=== PATIENT | male | born 1995 | race Caucasian/White ===

== ENCOUNTER 2017-01-29 15:56 | Emergency (ER) | payer OTHER ==
[~2017-01-29] VITALS: Ht 182.9 cm; Wt 134.2 kg
[~2017-01-29 15:56] MED LIST: ALBUAER2 INH; PHEN1MIS10 PO
[2017-01-29 16:00] VITALS: TEMP 36.6; Ht 182.9 cm; Wt 134.2 kg
--- NOTE | 2017-01-29 16:24 | EMERGENCY ROOM VISIT NOTE ---
History First contact with patient: 16:06 Chief Complaint: BITE Stated Complaint: FATIQUE,DISCOMFORT, MOSQUITO BITES History of Present Illness The patient is a 21 year old male who presents to the Emergency Room with complaints of a blister to the left ankle. The patient states that he noticed an area of swelling of the posterior left ankle this morning. He reports that he believes it is likely due to a mosquito bite, as he also has mosquito bites on his right hand and right arm. The patient states that he just returned from a trip to [place] today. He does report he is concerned because he was in an area where the Zika virus is present. The patient states that the area is painful and rates it a 4/10. He has not taken any medication for pain. The patient does note that he is tired, but also took a red eye flight home. He denies any joint aches, fevers or irritation of the eyes. Review of Systems A complete 10-point Review of Systems was discussed with the patient, with pertinent positives and negatives listed in the History of Present Illness. All remaining Review of Systems questions can be considered negative unless otherwise specified. Past Medical/Surgical History Medical Problems: (1) Asthma (2) Chronic asthmatic bronchitis Family History Diabetes mellitus Social History Smoking Status: Current Some Day Smoker Alcohol Use: none Drug Use: none Marital Status: single Housing Status: lives with family Occupation Status: [employer] student Current/Historical Medications Scheduled Albuterol Hfa (Ventolin Hfa), 4 PUFFS INH QID Hydrocortisone (Topical) (Cortizone-10), 1 APPLN TOP DAILY Allergies Coded Allergies: No Known Allergies (Unverified , 01/29/17) Physical Exam Vital Signs Date Time Temp Pulse Resp B/P Pulse Ox O2 Delivery O2 Flow Rate FiO2 01/29/17 16:36 62 17 130/68 98 01/29/17 16:00 36.6 62 17 130/68 98 Room Air Physical Exam VITALS: Vitals are noted on the nurse's note and reviewed by myself. Vital signs stable. GENERAL: This is a 21-year-old male, in no acute distress, nondiaphoretic, well- developed well-nourished. SKIN: There is a serous blister to the posterior left ankle. There is no surrounding erythema. HEENT: Normocephalic. PERRLA. EOMI. no conjunctivitis. Nares patent. Mucous membranes moist. Neck is supple without nuchal rigidity. HEART: Regular rate and rhythm without murmurs gallops or rubs. LUNGS: Clear to auscultation bilaterally without wheezes, rales or rhonchi. NEURO: Patient was alert and oriented to person place and time. Medical Decision & Procedures Medical Decision The patient was evaluated as above. He has a blister to the left ankle. I feel this is likely secondary to the shoes or socks that the patient was wearing while on his vacation. He does admit that he did a lot of hiking on his vacation. I do not feel that the patient should be concerning for Zika virus and did explain to him that this is a viral illness and only typically affects women. As the patient was in an area where the Zika virus is present, I did recommend that he use protection during any sexual contacts. I did rupture the blister with a sterile 18-gauge needle. Bacitracin and Band- Aid was applied to the area. Wound care instructions were discussed with the patient. He verbalized understanding of my assessment and treatment plan was discharged home in good condition. Impression Primary Impression: Blister of ankle without infection Departure Information Dispostion Home / Self-Care Condition GOOD Referrals No Doctor, Assigned (PCP) Patient Instructions My [facility] Additional Instructions Proper wound care is essential for adequate wound healing and infection prevention. You can shower and clean the wound with soap and water. Do not scour over the wound, pat dry with a towel. Do not submerse the wound (i.e. bathe or dish wash) until the wound has fully healed. You can use an antibiotic ointment with a dressing over the wound for the next 3-4 days. After this time you may leave the wound dry and open to the air. Follow-up with your primary care provider as needed. Return for any signs of infection such as increasing redness, increasing swelling, fevers or pus like drainage. Problem Qualifiers Primary Impression: Blister of ankle without infection Encounter type: initial encounter Laterality: left Qualified Codes: S90.522A - Blister (nonthermal), left ankle, initial encounter
[2017-01-29] MEDS ORDERED: HYDR1OIN11 TOP (16:31)
[2017-01-29 16:36] VITALS: BP 130/68; PULSE 62; O2SAT 98
[2017-07-20] MEDS ORDERED: VNTHFA/IN INH (16:28)
== END 2017-01-29 16:37 | disposition home or self-care (01) ==
LOC: C.EDB 15:57 → C.EDC 16:37
DX: S90.522A Blister (nonthermal), left ankle, initial encounter (principal); X58.XXXA Exposure to other specified factors, initial encounter; S90.562A Insect bite (nonvenomous), left ankle, initial encounter; R53.83 Other fatigue; W57.XXXA Bitten or stung by nonvenomous insect and other nonvenomous arthropods, initial encounter; Y92.89 Other specified places as the place of occurrence of the external cause; F17.210 Nicotine dependence, cigarettes, uncomplicated

== ENCOUNTER 2017-07-20 18:15 | Emergency (ER) | payer OTHER ==
[~2017-07-20] VITALS: Ht 182.9 cm; Wt 119.2 kg
[~2017-07-20 18:15] MED LIST changes: -ALBUAER2 INH; +HYDR1OIN11 TOP; -PHEN1MIS10 PO; +VNTHFA/IN INH
[2017-07-20 18:17] VITALS: TEMP 36.7
[2017-07-20] MEDS ORDERED: METHYLPREDNISOLONE 125 MG VIAL IV STA (18:21)
[2017-07-20] MEDS ORDERED: ALBUT/IPRATROP 3MG/0.5MG NEB 3 ML VIAL INH ONE (18:30)
--- NOTE | 2017-07-20 18:36 | EMERGENCY ROOM VISIT NOTE ---
History Report prepared by Sunshineibjagdeep: Mat Armas Under the Supervision of: Dr. Finesse Boo M.D. First contact with patient: 18:20 Chief Complaint: RESPIRATORY PROBLEMS Stated Complaint: CHEST PAIN,WHEEZING History of Present Illness The patient is a 21 year old male who presents to the Emergency Room with complaints of constant SOB that began a couple of days ago. He rates his discomfort as a 7/10 in severity. The patient states that he has been wheezing at night and whenever he walks. He states that he believes his symptoms are due to the weather. He also complains of a productive cough. The patient admits to a history of asthma. He admits that he used his inhaler today, but denies any relief of symptoms. The patient states that the inhaler expires in September. 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 The patient denies any steroids for his symptoms and abdominal pain. Source of History: patient Onset: a couple of days ago Position: other (global) Symptom Intensity: 7/10 Quality: other (wheeze) Timing: constant Associated Symptoms: + cough, No abdominal pain Review of Systems See HPI for pertinent positives & negatives. A total of 10 systems reviewed and were otherwise negative. Past Medical & Surgical Medical Problems: (1) Asthma (2) Chronic asthmatic bronchitis Family History Diabetes mellitus Social History Smoking Status: Former Smoker Alcohol Use: none Drug Use: none Marital Status: single Housing Status: lives with family Occupation Status: [employer] student Current/Historical Medications Scheduled Azithromycin (Zithromax), 250 MG PO DAILY Prednisone (Prednisone Tab), 0 PO DAILY Scheduled PRN Albuterol Hfa (Ventolin Hfa), 2 PUFFS INH QID PRN for SOB/Wheezing Allergies Coded Allergies: No Known Allergies (Unverified , 01/29/17) Physical Exam Vital Signs Date Time Temp Pulse Resp B/P (MAP) Pulse Ox O2 Delivery O2 Flow Rate FiO2 07/20/17 20:23 85 16 110/71 98 07/20/17 19:13 66 20 96 Room Air 07/20/17 18:50 62 07/20/17 18:40 99 Room Air 07/20/17 18:40 99 Room Air 07/20/17 18:40 62 20 136/78 99 Room Air 07/20/17 18:40 99 Room Air 07/20/17 18:17 36.7 64 18 132/77 97 Room Air Physical Exam GENERAL: Patient is a healthy-appearing well-nourished 21 year old male. HEAD: Normocephalic atraumatic EYES: Ocular movements intact pupils equal and react to light OROPHARYNX mucous membranes are moist no exudates present no erythema or edema present NECK: Supple no nuchal rigidity CHEST: Good equal expansion LUNGS: Wheezing through all lung andrew bilaterally. CARDIAC: Normal S1 and S2 ABDOMEN: Soft nontender no guarding BACK: No CVA tenderness EXTREMITIES: No pain upon palpation normal muscle strength in all groups no clubbing cyanosis or edema NEURO: Patient is following commands and answering questions appropriately. Alert and oriented x3 Cranial Nerves 2-12 grossly intact Medical Decision & Procedures ER Provider Diagnostic Interpretation: X-ray results as stated below per interpretation by me and the radiologist: CHEST ONE VIEW PORTABLE CLINICAL HISTORY: Pt c/o SOB dyspnea COMPARISON STUDY: 07/10/2016 FINDINGS: Mild stable cardiomegaly. Diaphragms smooth. Lungs are clear. IMPRESSION: No acute process The above report was generated using voice recognition software. It may contain grammatical, syntax or spelling errors. Electronically signed by: Harsh Stahl M.D. 07/20/2017 7:10 PM Dictated Date/Time: 07/20/2017 7:09 PM Laboratory Results 07/20/17 18:40 Red Blood Count 5.06, Mean Corpuscular Volume 85.0, Mean Corpuscular Hemoglobin 27.9, Mean Corpuscular Hemoglobin Concent 32.8, Mean Platelet Volume 11.4, Neutrophils (%) (Auto) 51.8, Lymphocytes (%) (Auto) 32.9, Monocytes (%) (Auto) 6.3, Eosinophils (%) (Auto) 8.1, Basophils (%) (Auto) 0.7, Neutrophils # (Auto) 3.16, Lymphocytes # (Auto) 2.00, Monocytes # (Auto) 0.38, Eosinophils # (Auto) 0.49, Basophils # (Auto) 0.04 07/20/17 18:40 Test 07/20/17 18:40 White Blood Count 6.08 K/uL (4.8-10.8) Red Blood Count 5.06 M/uL (4.7-6.1) Hemoglobin 14.1 g/dL (14.0-18.0) Hematocrit 43.0 % (42-52) Mean Corpuscular Volume 85.0 fL (80-100) Mean Corpuscular Hemoglobin 27.9 pg (25-34) Mean Corpuscular Hemoglobin Concent 32.8 g/dl (32-36) Platelet Count 201 K/uL (130-400) Mean Platelet Volume 11.4 fL (7.4-10.4) Neutrophils (%) (Auto) 51.8 % Lymphocytes (%) (Auto) 32.9 % Monocytes (%) (Auto) 6.3 % Eosinophils (%) (Auto) 8.1 % Basophils (%) (Auto) 0.7 % Neutrophils # (Auto) 3.16 K/uL (1.4-6.5) Lymphocytes # (Auto) 2.00 K/uL (1.2-3.4) Monocytes # (Auto) 0.38 K/uL (0.11-0.59) Eosinophils # (Auto) 0.49 K/uL (0-0.5) Basophils # (Auto) 0.04 K/uL (0-0.2) RDW Standard Deviation 44.6 fL (36.4-46.3) RDW Coefficient of Variation 14.4 % (11.5-14.5) Immature Granulocyte % (Auto) 0.2 % Immature Granulocyte # (Auto) 0.01 K/uL (0.00-0.02) Anion Gap 3.0 mmol/L (3-11) Est Creatinine Clear Calc Drug Dose 139.2 ml/min Estimated GFR () 109.1 Estimated GFR (Non- 94.1 BUN/Creatinine Ratio 13.1 (10-20) Calcium Level 8.9 mg/dl (8.5-10.1) Total Bilirubin 0.3 mg/dl (0.2-1) Aspartate Amino Transf (AST/SGOT) 30 U/L (15-37) Alanine Aminotransferase (ALT/SGPT) 29 U/L (12-78) Alkaline Phosphatase 60 U/L (45-117) Total Protein 7.1 gm/dl (6.4-8.2) Albumin 3.5 gm/dl (3.4-5.0) Globulin 3.6 gm/dl (2.5-4.0) Albumin/Globulin Ratio 1.0 (0.9-2) Influenza Type A (RT-PCR) Neg for Influ A (NEG) Influenza Type A Antigen Neg for Influ A (NEG) Influenza Type B Antigen Neg for Influ B (NEG) Influenza Type B (RT-PCR) Neg for Influ B (NEG) Labs reviewed by ED physician. Medications Administered Medications (Trade) Dose Ordered Sig/Chao Route Start Time Stop Time Status Last Admin Dose Admin Albuterol/ Ipratropium (Duoneb) 12 ml ONE ONCE INH 07/20/17 18:30 07/20/17 18:31 DC 07/20/17 19:10 12 ML Methylprednisolone Sodium Succinate (Solu-Medrol IV) 125 mg NOW STAT IV 07/20/17 18:21 07/20/17 18:23 DC 07/20/17 18:49 125 MG Azithromycin (Zithromax Tab) 500 mg NOW STAT PO 07/20/17 19:26 07/20/17 19:27 DC 07/20/17 19:56 500 MG Sodium Chloride 1,000 ml @ 999 mls/hr Q1H1M STAT IV 07/20/17 19:26 07/20/17 20:26 DC 07/20/17 19:26 999 MLS/HR Albuterol (Ventolin Hfa Inhaler) 2 puffs NOW STAT INH 07/20/17 19:36 07/20/17 19:37 DC 07/20/17 19:56 2 PUFFS ECG Indication: SOB/dyspnea Rate (beats per minute): 64 Rhythm: normal sinus Findings: no acute ischemic change, no ectopy ED Course 1820: Past medical records reviewed. The patient was evaluated in room B10. A complete history and physical examination was performed. 1820: Ordered Solu-Medrol IV 125 mg IV. 1829: Ordered Duoneb 12 ml INH. 1925: Ordered Sodium Chloride 1000 ml @ 999 mls/hr IV, Azithromycin 500 mg PO. 1935: Ordered Albuterol 2 puffs INH. Medical Decision The differential diagnosis includes etiologies such as infections, reactive airway disease, pneumonia, pneumothorax, COPD, CHF, cardiac ischemia, pulmonary embolism, musculoskeletal, gastrointestinal, as well as others were entertained. This is a 21-year-old male with a history of asthma who presents emergency department complaining of bilateral wheezing. The patient reports his inhaler has not been helping him. He is wheezing on examination. The patient was given an hour-long breathing treatment in the emergency department and started on Solu-Medrol. He will also be started on azithromycin. He has a normal chest x-ray does not have an elevation in his white blood count cell count and does not appear to be in any apparent acute distress. Based on these findings I feel that the patient as well as to be discharged home on a prednisone taper along with azithromycin. He was also given an inhaler for his use. He was told to return if his condition worsens. Patient was in agreement with the treatment plan. Medication Reconcilliation Current Medication List: was personally reviewed by me Blood Pressure Screening Patient's blood pressure: Normal blood pressure Impression Primary Impression: Acute bronchitis Scribe Attestation The scribe's documentation has been prepared under my direction and personally reviewed by me in its entirety. I confirm that the note above accurately reflects all work, treatment, procedures, and medical decision making performed by me. Departure Information Dispostion Home / Self-Care Prescriptions Azithromycin (ZITHROMAX) 250 Mg Tab 250 MG PO DAILY, #4 TAB Prov: Finesse Boo MD 07/20/17 Prednisone (Prednisone Tab) 20 Mg Tab 0 PO DAILY, #7 TAB 2 TABS DAILY FOR 2 DAYS, THEN 1 TAB DAILY FOR 2 DAYS, THEN 1/2 TAB DAILY FOR 2 DAYS. Prov: Finesse Boo MD 07/20/17 Referrals No Doctor, Assigned (PCP) Forms HOME CARE DOCUMENTATION FORM, IMPORTANT VISIT INFORMATION, WORK / SCHOOL INSTRUCTIONS Patient Instructions ED Bronchitis Asthmatic, My [facility] Additional Instructions Use inhaler twice every 6 hours You have been examined and treated today on an emergency basis only. This is not a substitute for, or an effort to provide, complete comprehensive medical care. It is impossible to recognize and treat all injuries or illnesses in a single emergency department visit. It is therefore important that you follow up closely with [facility]. Call as soon as possible for an appointment. Thank you for your time and consideration. I look forward to speaking with you again soon. Please don't hesitate to call us if you have any questions. Problem Qualifiers Primary Impression: Acute bronchitis Bronchitis organism: unspecified organism Qualified Codes: J20.9 - Acute bronchitis, unspecified
[2017-07-20 18:40] VITALS: O2SAT 99; Ht 182.9 cm; Wt 119.2 kg
--- NOTE | 2017-07-20 19:11 | DIAGNOSTIC IMAGING REPORT ---
CHEST ONE VIEW PORTABLE CLINICAL HISTORY: Pt c/o SOB dyspnea COMPARISON STUDY: 07/10/2016 FINDINGS: Mild stable cardiomegaly. Diaphragms smooth. Lungs are clear. IMPRESSION: No acute process The above report was generated using voice recognition software. It may contain grammatical, syntax or spelling errors. Electronically signed by: Harsh Stahl M.D. 07/20/2017 7:10 PM Dictated Date/Time: 07/20/2017 7:09 PM
[2017-07-20 19:12] LABS: BASO % 0.7 %; BASO ABS # 0.04 K/uL (0-0.2); COMPLETE YES; EOS % 8.1 %; IG% 0.2 %; LYMPH % 32.9 %; MEAN CORPUSCULAR HEMOGLOBIN 27.9 pg (25-34); MEAN CORPUSCULAR HGB CONC 32.8 g/dl (32-36); MEAN PLATELET VOLUME 11.4 fL (7.4-10.4); MONO % 6.3 %; NEUT % 51.8 %; PLATELET COUNT 201 K/uL (130-400); RED BLOOD COUNT 5.06 M/uL (4.7-6.1); WHITE BLOOD COUNT 6.08 K/uL (4.8-10.8)
[2017-07-20 19:13] VITALS: PULSE 66; O2SAT 96
[2017-07-20] MEDS ORDERED: AZITHROMYCIN 250 MG TAB PO STA (19:26)
[2017-07-20] MEDS ORDERED: SODIUM CHLORIDE 0.9% 1000ML 1,000 ML IV STA (19:26)
[2017-07-20 19:34] LABS: BUN/CREATININE RATIO 13.1 (10-20); CALCIUM 8.9 mg/dl (8.5-10.1); CREATININE 1.1 mg/dl (0.60-1.40); POTASSIUM 4.2 mmol/L (3.5-5.1)
[2017-07-20] MEDS ORDERED: ALBUTEROL HFA 8 GM INHALER INH STA (19:36)
[2017-07-20] MEDS ORDERED: AZIT250T5 PO (19:38)
[2017-07-20] MEDS ORDERED: PRED20TA2 PO (19:38)
[2017-07-20 20:23] VITALS: BP 110/71; PULSE 85; O2SAT 98
[2017-07-20 22:01] LABS: INFLUENZA A PCR Neg for Influ A (NEG); INFLUENZA B PCR Neg for Influ B (NEG)
== END 2017-07-20 20:25 | disposition home or self-care (01) ==
LOC: C.EDB 18:16
DX: J44.0 Chronic obstructive pulmonary disease with (acute) lower respiratory infection (principal); J20.9 Acute bronchitis, unspecified; J45.909 Unspecified asthma, uncomplicated; Z87.891 Personal history of nicotine dependence; Z83.3 Family history of diabetes mellitus